=== PATIENT | female | born 1965 | race Caucasian/White ===

== ENCOUNTER 2017-01-06 13:27 | Day surgery (SDC) | payer OTHER, SELFPAY | END 2017-01-06 14:38 | disposition home or self-care (01) | PROVIDERS: Family Provider Emergency Medicine; Visit Provider Nurse Anesthetist, Certified Registered | DX: M50.10 Cervical disc disorder with radiculopathy, unspecified cervical region (principal); M96.1 Postlaminectomy syndrome, not elsewhere classified | CPT/HCPCS: 62320; 62321; 62323; J1040; Q9966 ==

== ENCOUNTER → 2017-12-21 09:57 | Outpatient (POV) | payer OTHER, SELFPAY ==
[2017-12-21 10:08] VITALS: BP 128/82; PULSE 101; RESP 16; TEMP 36.7; O2SAT 95; BMI 23.5
--- NOTE | 2017-12-21 10:35 | HMH.PAINSOAP ---
[facility] Pain Management SOAP Note Subjective:: This patient is a pleasant 52-year-old white female who we are treating for neck pain with cervical radiculopathy symptoms. She is degenerative disc disease of the cervical spine. She has had previous cervical epidural steroid injections which have helped tremendously. Her last injection was approximately 3 months ago. Her pain is starting to return especially in her neck radiating to both shoulders. We will seek approval for repeat cervical epidural steroid injection under fluoroscopy. She is also taking [place] 7.5 mg 3 times a day. She is doing very well with her pain medication. Kaspar and urine drug screen are all appropriate. Kaspar #[id number]. Pain medication relieves her pain by 50-70%. She has no side effects with her pain medication. Objective:: Alert and oriented ?3 in no acute distress. Decreased range of motion of the cervical spine. Tenderness over the cervical spine. Motor strength of the upper extremities is 5/5. There is no gross sensory deficit. Assessment:: Degenerative disc disease of the cervical spine with cervical radiculopathy symptoms. Plan:: We will seek approval and plan on cervical epidural steroid injection under fluoroscopy at C6-C7. We will also refill her [place] 7.5 mg 1 tablet 3 times a day. We will give HER-2 months worth of prescriptions.
--- NOTE | 2017-12-21 10:40 | P.CONS_ITS ---
[facility] Pain Management SOAP Note Subjective:: This patient is a pleasant 52-year-old white female who we are treating for neck pain with cervical radiculopathy symptoms. She is degenerative disc disease of the cervical spine. She has had previous cervical epidural steroid injections which have helped tremendously. Her last injection was approximately 3 months ago. Her pain is starting to return especially in her neck radiating to both shoulders. We will seek approval for repeat cervical epidural steroid injection under fluoroscopy. She is also taking [place] 7.5 mg 3 times a day. She is doing very well with her pain medication. Kaspar and urine drug screen are all appropriate. Kaspar #[id number]. Pain medication relieves her pain by 50-70%. She has no side effects with her pain medication. Objective:: Alert and oriented ?3 in no acute distress. Decreased range of motion of the cervical spine. Tenderness over the cervical spine. Motor strength of the upper extremities is 5/5. There is no gross sensory deficit. Assessment:: Degenerative disc disease of the cervical spine with cervical radiculopathy symptoms. Plan:: We will seek approval and plan on cervical epidural steroid injection under fluoroscopy at C6-C7. We will also refill her Jennings 7.5 mg 1 tablet 3 times a day. We will give HER-2 months worth of prescriptions.
== END ==
PROVIDERS: Family Provider Family Medicine Geriatric Medicine; PCP Family Medicine Geriatric Medicine; Visit Provider Anesthesiology
DX: M54.12 Radiculopathy, cervical region (principal)
CPT/HCPCS: 99212

== ENCOUNTER → 2017-12-31 14:09 | Outpatient (REF) | payer OTHER, SELFPAY ==
[2017-12-31 17:43] LABS: Basophils # 0.1 K/mm3 (0-0.2); Basophils % 0.8 % (0.1-2.0); Eosinophils # 0.3 K/mm3 (0.0-0.4); Eosinophils % 3.9 % (0.1-12.0); Hematocrit 40.7 % (37.0-47.0); Hemoglobin 13.3 g/dL (12.2-16.2); Lymphocytes # 3.7 K/mm3 (0.7-4.5); Lymphocytes % 56.3 K/mm3 (10-50); Mean Corpuscular HGB Conc 32.8 g/dL (31.8-35.4); Mean Corpuscular Hemoglobin 33.5 pg (27.0-31.2); Mean Corpuscular Volume 102.2 fl (81-99); Mean Platelet Volume 9.3 fl (7.4-10.4); Monocytes # 0.6 K/mm3 (0.1-1.0); Monocytes % 8.9 % (1.7-9.3); Neutrophils % 30.1 % (37.0-80.0); Platelet Count 202 K/mm3 (142-424); Red Blood Count 3.98 M/mm3 (4.20-5.40); Red Cell Distribution Width 12.2 % (11.5-17.5); White Blood Count 6.6 K/mm3 (4.8-10.8)
[2017-12-31 17:45] LABS: MANUAL DIFFERENTIAL MANUAL DIFFERENTIAL (MANUAL DIFF)
[2017-12-31 18:11] LABS: Alanine Aminotransferase 124 U/L (12-78); Albumin Level 3.7 gm/dL (3.4-5.0); Alkaline Phosphatase 74 U/L (46-116); Anion Gap 14.3 mEq/L (5-15); Aspartate Amino Transferase 136 U/L (15-37); Bilirubin,Total 0.4 mg/dL (0.2-1.0); Blood Urea Nitrogen 5 mg/dL (7-18); Calcium 9.1 mg/dL (8.5-10.1); Carbon Dioxide 27 mmol/L (21.0-32.0); Chloride 108 mmol/L (98-107); Cholesterol 175 mg/dL (140-200); Creatinine,Serum 0.61 mg/dL (0.55-1.02); Estimated Glomerular Filt Rate 104 ml/min (>60); GFR (African American) 126 ML/MIN (>60); Globulin 3.7 gm/dl (1.3-3.2); Glucose 76 mg/dL (74-106); HDL Cholesterol 58 mg/dL (29-89); LDL Cholesterol 80 mg/dL (0-130); Potassium 4.3 mmoL/L (3.5-5.1); Sodium 145 mmol/L (136-145); T4 (Thyroxine) 9.2 ug/dl (4.7-13.3); Total Protein,Serum 7.4 gm/dL (6.4-8.2); Triglycerides 183 mg/dL (30-200); VLDL Cholesterol 37 mg/dL (0-40)
[2017-12-31 19:10] LABS: Eosinophils % 3 % (0-3); Lymphocytes % 55 % (10-50); Macrocytosis 1+; Monocytes % 18 % (2-9); Neutrophils % 24 % (42-76); Platelet Estimate Normal; Total Cells Counted 100
[2018-01-02 19:09] LABS: Vitamin D 25 Hydroxy 49.1 ng/mL (30.0-100.0)
== END ==
LOC: LAB 14:09
PROVIDERS: Visit Provider Physician Assistant
DX: R53.83 Other fatigue (principal)
CPT/HCPCS: 80053; 80061; 82652; 84436; 84443; 85007; 85025

== ENCOUNTER → 2018-01-05 11:20 | Outpatient (CLI) | payer OTHER, SELFPAY ==
[2018-01-08 12:03] LABS: Vitamin B12 772 pg/mL (232-1245)
== END ==
PROVIDERS: PCP Physician Assistant; Visit Provider Physician Assistant
DX: R53.83 Other fatigue (principal)
CPT/HCPCS: 36415; 82607; 82746

== ENCOUNTER 2018-01-29 11:11 | Day surgery (SDC) | payer OTHER, SELFPAY ==
[2018-01-29 12:05] VITALS: BP 137/97; PULSE 124; TEMP 36.7; O2SAT 99; BMI 23.5
--- NOTE | 2018-01-29 12:53 | HMH.PMPROC ---
- Procedure Date: 01/29/18 Time: 12:53 Anesthesiologist:: Brown Curtis MD Complications:: None Pre-procedure Diagnosis:: Degenerative disc disease of cervical spine with cervical radiculopathy symptoms Post-procedure Diagnosis:: Same Indications for Procedure:: He this patient is a pleasant 52-year-old white female who we are treating for neck pain with cervical radiculopathy symptoms. She has had a previous cervical epidural steroid injection which is helped tremendously. This was approximately 3-4 months ago. Her pain is starting to return. We will do a repeat cervical epidural steroid injection today at C6-C7. Procedure Details:: Cervical epidural steroid injection under fluoroscopy Informed consent was obtained and the risks and benefits of the procedure was explained to the patient. The patient was taken to the procedure room placed prone on the procedure table. The neck was prepped using ChloraPrep. The skin and subcutaneous tissues were anesthetized using lidocaine. I placed a 18-gauge epidural needle into the C6-C7 interspace and advanced using [id number] to air and fluoroscopic guidance. After confirmation of needle placement in the epidural space with dye, I injected 3 mL's lidocaine 1.5% and Depo-Medrol 80 mg. The patient tolerated the procedure well with no complications. Plan and Disposition:: We will follow-up with her in 2 weeks. We will reevaluate her symptoms at that time.
--- NOTE | 2018-01-29 12:57 | P.PCN_ITS ---
- Procedure Date: 01/29/18 Time: 12:53 Anesthesiologist:: Brown Curtis MD Complications:: None Pre-procedure Diagnosis:: Degenerative disc disease of cervical spine with cervical radiculopathy symptoms Post-procedure Diagnosis:: Same Indications for Procedure:: He this patient is a pleasant 52-year-old white female who we are treating for neck pain with cervical radiculopathy symptoms. She has had a previous cervical epidural steroid injection which is helped tremendously. This was approximately 3-4 months ago. Her pain is starting to return. We will do a repeat cervical epidural steroid injection today at C6-C7. Procedure Details:: Cervical epidural steroid injection under fluoroscopy Informed consent was obtained and the risks and benefits of the procedure was explained to the patient. The patient was taken to the procedure room placed prone on the procedure table. The neck was prepped using ChloraPrep. The skin and subcutaneous tissues were anesthetized using lidocaine. I placed a 18- gauge epidural needle into the C6-C7 interspace and advanced using loss-of- resistance to air and fluoroscopic guidance. After confirmation of needle placement in the epidural space with dye, I injected 3 mL's lidocaine 1.5% and Depo-Medrol 80 mg. The patient tolerated the procedure well with no complications. Plan and Disposition:: We will follow-up with her in 2 weeks. We will reevaluate her symptoms at that time.
[2018-01-29 13:01] VITALS: BP 135/95; PULSE 108; RESP 18
[2018-01-29 13:03] VITALS: BP 123/96; PULSE 110; RESP 20
[2018-01-29 14:05] VITALS: BP 141/96; PULSE 81; RESP 18; TEMP 36.7; O2SAT 100
--- NOTE | 2018-02-05 09:22 | PC.PHONENOTE ---
called in Rx for Gabapentin 300mg TID with 2 refills and Flexeril 10mg TID with 2 refills to [facility] pharmacy
== END 2018-01-29 14:05 | disposition home or self-care (01) ==
LOC: SC.PAINP 11:12
PROVIDERS: Family Provider Family Medicine Geriatric Medicine; PCP Physician Assistant; Visit Provider Anesthesiology
DX: M50.10 Cervical disc disorder with radiculopathy, unspecified cervical region (principal)
CPT/HCPCS: 62321; J1040; Q9966

== ENCOUNTER → 2018-02-15 12:47 | Outpatient (POV) | payer OTHER, SELFPAY ==
[2018-02-15 14:07] VITALS: BP 180/103; PULSE 78; RESP 18; TEMP 36.4; O2SAT 99; BMI 23.5
[2018-02-15 15:58] LABS: Amphetamine/Metha Screen,Urine Negative ng/mL (<1000); Barbiturates Screen,Urine Negative ng/mL (<200); Benzodiazepines Screen,Urine Negative ng/mL (200); Cannabinoid Screen,Urine Negative ng/mL (<50); Cocaine Screen,Urine Negative ng/g (<300); Methadone Screen,Urine Negative ng/mL (<300); Opiate Screen,Urine Positive ng/mL (<300); Phencyclidine Screen,Urine Negative ng/mL (<25)
--- NOTE | 2018-02-15 16:42 | HMH.PAINSOAP ---
[facility] Pain Management SOAP Note Subjective:: Patient is a pleasant 52-year-old white female who presents today for follow-up after of cervical epidural steroid injection. Patient has had 80-90% relief of her symptoms. Patient is doing quite well. Patient is currently being medically managed for other pain with Sandy 7.5 mg 1 p.o. 3 times daily. And gabapentin 300 mg 1 p.o. 3 times daily. Patient recently received a prescription from Dr. Ratliff. Just with the patient that she needs to notify us if physician writes or any controlled substances. Patient's urine drug screen did test positive for opiates today. Patient had difficulty producing a urine sample. Patient is here for medication refills. Patient's JOHN #[id number] reviewed at this time. Patient rates her pain a 6 out of 10 today. She is having shoulder surgery. Patient states her pain is achy and dull. ROS General: no recent weight change, no fever, no sleep disturbances Respiratory: no cough, no shortness of air, no recurring pulmonary infections Cardiovascular/Peripheral Vascular: No chest pain, No palpitations, no edema, no shortness of breath. Gastrointestinal: no incontinence, normal bowel movements reported Genitourinary: no incontinence Musculoskeletal: Neck pain, shoulder pain Psychiatric: normal mood/ affect, [denies depression], [denies anxiety] Neurological: [denies weakness in extremities], [denies balance issues] Objective:: Physical Exam General: Alert and oriented x3, no acute distress, pleasant and cooperative, [on room air] Lungs: Resps E/U, Symmetrical chest expansion, Eyes: PERRL Musculoskeletal: Flexion and extension of cervical spine somewhat guarded secondary to pain, deep tendon reflexes normal, strength in upper and lower extremities [5/5], normal gait noted Neurological: speech clear, sandblaster stone equal, no gross sensory deficits Assessment:: Degenerative disc disease of the cervical spine, cervical radiculopathy, shoulder pain Plan:: She is not needing prescription refills at this time. Patient will call for her next prescription. Dr. Curtis will review her chart at that time. Patient's John and urine drug screen reviewed at this time. We will follow-up with this patient in 2-3 months. This note was dictated using voice recognition software may contain errors or omissions
--- NOTE | 2018-02-15 16:47 | P.CONS_ITS ---
[facility] Pain Management SOAP Note Subjective:: Patient is a pleasant 52-year-old white female who presents today for follow-up after of cervical epidural steroid injection. Patient has had 80-90% relief of her symptoms. Patient is doing quite well. Patient is currently being medically managed for other pain with [place] 7.5 mg 1 p.o. 3 times daily. And gabapentin 300 mg 1 p.o. 3 times daily. Patient recently received a prescription from Dr. Ratliff. Just with the patient that she needs to notify us if physician writes or any controlled substances. Patient's urine drug screen did test positive for opiates today. Patient had difficulty producing a urine sample. Patient is here for medication refills. Patient's JOHN # [id number] reviewed at this time. Patient rates her pain a 6 out of 10 today. She is having shoulder surgery. Patient states her pain is achy and dull. ROS General: no recent weight change, no fever, no sleep disturbances Respiratory: no cough, no shortness of air, no recurring pulmonary infections Cardiovascular/Peripheral Vascular: No chest pain, No palpitations, no edema, no shortness of breath. Gastrointestinal: no incontinence, normal bowel movements reported Genitourinary: no incontinence Musculoskeletal: Neck pain, shoulder pain Psychiatric: normal mood/ affect, [denies depression], [denies anxiety] Neurological: [denies weakness in extremities], [denies balance issues] Objective:: Physical Exam General: Alert and oriented x3, no acute distress, pleasant and cooperative, [ on room air] Lungs: Resps E/U, Symmetrical chest expansion, Eyes: PERRL Musculoskeletal: Flexion and extension of cervical spine somewhat guarded secondary to pain, deep tendon reflexes normal, strength in upper and lower extremities [5/5], normal gait noted Neurological: speech clear, store stock associate equal, no gross sensory deficits Assessment:: Degenerative disc disease of the cervical spine, cervical radiculopathy, shoulder pain Plan:: She is not needing prescription refills at this time. Patient will call for her next prescription. Dr. Curtis will review her chart at that time. Patient's John and urine drug screen reviewed at this time. We will follow-up with this patient in 2-3 months. This note was dictated using voice recognition software may contain errors or omissions
[2018-02-22 16:16] LABS: Codeine Negative (Cutoff=100); Hydrocodone Positive (.); Hydromorphone Positive (.); Morphine Negative (Cutoff=100)
[2018-02-23 15:38] LABS: Opiates Positive (.)
== END ==
PROVIDERS: Family Provider Family Medicine Geriatric Medicine; PCP Physician Assistant; Visit Provider Clinical Nurse Specialist Family Health
DX: M54.12 Radiculopathy, cervical region (principal)
CPT/HCPCS: 99212; 80305; 80361; 80365; G0480

== ENCOUNTER → 2018-03-08 12:04 | Outpatient (CLI) | payer OTHER, SELFPAY ==
--- NOTE | 2018-03-08 12:05 | XR_ITS ---
XR hip RT 2-3V w/pelvis HISTORY: ITS.REASON: right hip pain ORDERING PHYSICIAN: LUISITO Griffin PATIENT AGE: 52 years FINDINGS: No fracture or dislocation is evident. There are minimal osteoarthritic changes of the right hip with slight decrease in joint space medially. No lytic or blastic change. IMPRESSION: Minimal osteoarthritis of the right hip otherwise negative
== END ==
PROVIDERS: PCP Physician Assistant; Visit Provider Physician Assistant
DX: M25.551 Pain in right hip (principal)
CPT/HCPCS: 73502

== ENCOUNTER → 2018-06-21 09:16 | Outpatient (POV) | payer OTHER, SELFPAY ==
[2018-06-21 09:28] VITALS: BP 145/90; PULSE 89; RESP 18; O2SAT 98; BMI 22.7
--- NOTE | 2018-06-21 09:55 | HMH.PAINSOAP ---
[facility] Pain Management SOAP Note Subjective:: Is a pleasant 52-year-old white female who presents today for follow-up. Patient was getting injections from us along with medication however she failed to put out recently. We are no longer writing her [place] 7.5 mg 1 p.o. 3 times daily. Patient went to pain management in [place] however she stated she had difficulty understanding the physician. Patient returns today wanting to pursue a cervical epidural steroid injection. Patient has had these in the past but states it helps up to 80% for 3-4 months. Patient rates her pain today at 8 out of 10 mostly at her Lyrica going down her arms. She states that her arms get numb at times along with all of her fingers on both hands. ROS General: no recent weight change, no fever, no sleep disturbances Respiratory: no cough, no shortness of air, no recurring pulmonary infections Cardiovascular/Peripheral Vascular: No chest pain, No palpitations, no edema, no shortness of breath. Gastrointestinal: no incontinence, normal bowel movements reported Genitourinary: no incontinence Musculoskeletal: Neck pain, arm pain Psychiatric: normal mood/ affect Neurological: [denies weakness in extremities], [denies balance issues] Objective:: Physical Exam General: Alert and oriented x3, no acute distress, pleasant and cooperative, [on room air] Lungs: Resps E/U, Symmetrical chest expansion, Eyes: PERRL Musculoskeletal: Flexion and extension of lumbar and cervical spine somewhat guarded secondary to pain, deep tendon reflexes normal, strength in upper and lower extremities [5/5], slightly antalgic gait noted Neurological: speech clear, plant and maintenance technician equal, no gross sensory deficits Assessment:: Degenerative disc disease of the cervical spine, cervical radiculopathy, degenerative disc disease of the lumbar spine with lumbar radiculopathy Plan:: Did discuss neuro stimulation with the patient I do believe that this may be of benefit for her. Patient is going to consider this. We will schedule her for a C6-C7 cervical epidural steroid injection given that she has had such good relief with this in the past. Patient is not on any anticoagulation therapy. I will follow-up with the patient after her injection. This note was dictated using voice recognition software and may contain errors or omissions
== END ==
PROVIDERS: Family Provider Family Medicine Geriatric Medicine; PCP Physician Assistant; Visit Provider Clinical Nurse Specialist Family Health
DX: M50.10 Cervical disc disorder with radiculopathy, unspecified cervical region (principal); M51.16 Intervertebral disc disorders with radiculopathy, lumbar region
CPT/HCPCS: 99212

== ENCOUNTER → 2019-01-19 08:45 | Outpatient (CLI) | payer OTHER, SELFPAY ==
--- NOTE | 2019-01-19 08:48 | XR_ITS ---
XR knee RT 4V HISTORY: ITS.REASON: Bilateral knee pain ORDERING PHYSICIAN: LUISITO Griffin PATIENT AGE: 53 years COMPARISON: None FINDINGS: No fracture or dislocation. No lytic or blastic change. Normal mineralization. Minimal osteophyte formation is noted along the lateral patella on the sunrise view. There is chondrocalcinosis of the medial lateral meniscus. There is slight decrease in the joint space medially. IMPRESSION: 1. Minimal osteoarthritic change. 2. Chondrocalcinosis
--- NOTE | 2019-01-19 08:48 | XR_ITS ---
XR knee LT 4V HISTORY: Left knee pain ITS.REASON: Bilateral knee pain ORDERING PHYSICIAN: LUISITO Griffin PATIENT AGE: 53 years COMPARISON: None FINDINGS: No fracture or dislocation. No lytic or blastic change. Normal mineralization. The joint spaces are well-preserved. There is minimal osteophyte formation along the lateral aspect of the patella. There is chondrocalcinosis of medial lateral menisci. IMPRESSION: 1. Chondrocalcinosis. 2. Minimal osteoarthritic change of the patellofemoral joint
== END ==
PROVIDERS: PCP Physician Assistant; Visit Provider Physician Assistant
DX: M25.562 Pain in left knee (principal)
CPT/HCPCS: 73564

== ENCOUNTER → 2019-05-03 10:44 | Outpatient (POV) | payer OTHER, SELFPAY ==
--- NOTE | 2019-05-03 11:14 | HMH.PAINSOAP ---
[facility] Pain Management SOAP Note Subjective:: Patient is a pleasant 53-year-old white female who presents today patient rates her pain a 9 out of 10 mostly in her neck and back. She was on [place] for months however she failed a pill count. She then going to pain management in [place]. Patient has done injections in the past with no real relief. Patient is interested in spinal cord stimulation. She has pain in her neck and low back with numbness and tingling in all extremities. She is tried and failed multiple medications ROS General: no recent weight change, no fever, no sleep disturbances Respiratory: no cough, no shortness of air, no recurring pulmonary infections Cardiovascular/Peripheral Vascular: No chest pain, No palpitations, no edema, no shortness of breath. Gastrointestinal: no incontinence, normal bowel movements reported Genitourinary: no incontinence Musculoskeletal: Back pain, leg pain, neck pain, arm pain Psychiatric: normal mood/ affect Neurological: [denies weakness in extremities], [denies balance issues] Objective:: Physical Exam General: Alert and oriented x3, no acute distress, pleasant and cooperative, [on room air] Lungs: Resps E/U, Symmetrical chest expansion, Eyes: PERRL Musculoskeletal: Flexion and extension of cervical and lumbar spine somewhat guarded secondary to pain, deep tendon reflexes normal, strength in upper and lower extremities [5/5], antalgic gait noted Neurological: speech clear, manager of software equal, no gross sensory deficits Assessment:: Degenerative disc disease cervical and lumbar spine with cervical radiculopathy and lumbar radiculopathy CRPS type II Plan:: We will send the patient for psychological evaluation to determine if she is a good candidate for neuro stimulation. Patient will be followed up with after psychological evaluation. She is been instructed to call the office if she has any issues prior to her next appointment. Dr. Curtis has reviewed this note and agrees with this plan of care. This note was dictated using voice recognition software and may contain errors or omissions
--- NOTE | 2019-05-03 11:25 | P.CONS_ITS ---
[facility] Pain Management SOAP Note Subjective:: Patient is a pleasant 53-year-old white female who presents today patient rates her pain a 9 out of 10 mostly in her neck and back. She was on [place] for months however she failed a pill count. She then going to pain management in [place]. Patient has done injections in the past with no real relief. Patient is interested in spinal cord stimulation. She has pain in her neck and low back with numbness and tingling in all extremities. She is tried and failed multiple medications ROS General: no recent weight change, no fever, no sleep disturbances Respiratory: no cough, no shortness of air, no recurring pulmonary infections Cardiovascular/Peripheral Vascular: No chest pain, No palpitations, no edema, no shortness of breath. Gastrointestinal: no incontinence, normal bowel movements reported Genitourinary: no incontinence Musculoskeletal: Back pain, leg pain, neck pain, arm pain Psychiatric: normal mood/ affect Neurological: [denies weakness in extremities], [denies balance issues] Objective:: Physical Exam General: Alert and oriented x3, no acute distress, pleasant and cooperative, [on room air] Lungs: Resps E/U, Symmetrical chest expansion, Eyes: PERRL Musculoskeletal: Flexion and extension of cervical and lumbar spine somewhat guarded secondary to pain, deep tendon reflexes normal, strength in upper and lower extremities [5/5], antalgic gait noted Neurological: speech clear, prison librarian equal, no gross sensory deficits Assessment:: Degenerative disc disease cervical and lumbar spine with cervical radiculopathy and lumbar radiculopathy CRPS type II Plan:: We will send the patient for psychological evaluation to determine if she is a good candidate for neuro stimulation. Patient will be followed up with after psychological evaluation. She is been instructed to call the office if she has any issues prior to her next appointment. Dr. Curtis has reviewed this note and agrees with this plan of care. This note was dictated using voice recognition software and may contain errors or omissions
[2019-05-03 11:30] VITALS: BP 150/87; PULSE 90; RESP 18; O2SAT 98; BMI 21.9
== END ==
PROVIDERS: PCP Physician Assistant; Visit Provider Clinical Nurse Specialist Family Health
DX: M50.10 Cervical disc disorder with radiculopathy, unspecified cervical region (principal); M54.16 Radiculopathy, lumbar region
CPT/HCPCS: 99212

== ENCOUNTER → 2019-08-09 10:01 | Outpatient (POV) | payer OTHER, SELFPAY ==
[2019-08-09 10:15] VITALS: BP 100/71; PULSE 87; RESP 18; O2SAT 97; BMI 22.7
--- NOTE | 2019-08-09 12:21 | HMH.PMPROC ---
- Procedure Date: 08/09/19 Time: 12:21 Anesthesiologist:: Dixie Kaur APRN Complications:: None Pre-procedure Diagnosis:: Degenerative disc disease cervical spinal cervical radiculopathy symptoms, degenerative disc disease lumbar spine with lumbar radiculopathy symptoms Post-procedure Diagnosis:: Same Indications for Procedure:: Patient is a 54-year-old white female who we are following up with today for lead removal from a stimulator trial. Patient states she got no relief from it. She rates her pain a 9 out of 10. Will get some updated imaging on her however at this point we are limited to what we can offer her. She is failed a pill count in the past and is not an intrathecal pain pump candidate. Patient is tried and failed injection therapy as well. Physical Exam General: Alert and oriented x3, no acute distress, pleasant and cooperative, [on room air] Lungs: Resps E/U, Symmetrical chest expansion, Eyes: PERRL Musculoskeletal: Flexion and extension of lumbar and cervical spine somewhat guarded secondary to pain, deep tendon reflexes normal, strength in upper and lower extremities [5/5], [abnormal gait noted] Neurological: speech clear, recycling crew supervisor equal, no gross sensory deficits Procedure Details:: After informed consent was obtained the risk and benefits of the procedure were explained to the patient. Patient's vital signs were monitored with noninvasive blood pressure cuff and pulse oximeter. Patient's tape was removed on her back. The area in which her epidural leads entered was examined to ensure no redness or draining. Patient leads were then removed in sterile fashion. Patient then had Band-Aids placed over the puncture sites. Patient tolerated the procedure well. Plan and Disposition:: Patient did not get any relief from her stimulator. We will get some updated imaging she may need to see a surgeon. Patient has failed a pill count she is no intrathecal pain pump candidate. Dr. Curtis has reviewed this note and agrees with this plan of care. This note was dictated using voice recognition software and may contain errors or omissions
== END ==
PROVIDERS: PCP Physician Assistant; Visit Provider Clinical Nurse Specialist Family Health
DX: M50.10 Cervical disc disorder with radiculopathy, unspecified cervical region (principal); M51.16 Intervertebral disc disorders with radiculopathy, lumbar region
CPT/HCPCS: 99212

== ENCOUNTER → 2019-09-05 13:10 | Outpatient (POV) | payer OTHER, SELFPAY ==
[2019-09-05 13:20] VITALS: BP 141/87; PULSE 80; RESP 18; O2SAT 98; BMI 22.7
--- NOTE | 2019-09-06 11:40 | P.CONS_ITS ---
[facility] Pain Management SOAP Note Subjective:: Patient is a pleasant 54-year-old white female who we are following up with today after denial for an MRI. Patient needs an MRI to be seen by a neurosurgeon. I do believe that would be beneficial for her. Patient failed a pill count in the past and at this time is not an intrathecal pain pump pool date. She is tried and failed a neurostimulator. She rates her pain today a 7 out of 10. Patient was denied her MRI due to her not having physical therapy in the last 6 months. We will order this for her. ROS General: no recent weight change, no fever, no sleep disturbances Respiratory: no cough, no shortness of air, no recurring pulmonary infections Cardiovascular/Peripheral Vascular: No chest pain, No palpitations, no edema, no shortness of breath. Gastrointestinal: no new onset incontinence, normal bowel movements reported Genitourinary: no new onset incontinence Musculoskeletal: Back pain leg pain Psychiatric: normal mood/ affect Neurological: [denies new onset weakness in extremities], [denies new onset balance issues] Objective:: Physical Exam General: Alert and oriented x3, no acute distress, pleasant and cooperative, [on room air] Lungs: Resps E/U, Symmetrical chest expansion, Eyes: PERRL Musculoskeletal: Flexion and extension of lumbar spine somewhat guarded secondary to pain, deep tendon reflexes normal, strength in upper and lower extremities [5/5], slightly antalgic gait noted Neurological: speech clear, emt basic equal, no gross sensory deficits Assessment:: Degenerative disc disease cervical and lumbar spine with radiculopathy Plan:: We will order physical therapy for the patient. When she is completed this we will order new MRI for surgical consult. Dr. Curtis has reviewed this note and agrees with this plan of care. This note was dictated using voice recognition software and may contain errors or omissions [facility] History I have reviewed the patient's past medical history: Yes Medical History: Reports:: Hepatitis (Hep C postive on medications) Denies:: Cancer, Diabetes Mellitus Type 1, Diabetes Mellitus Type 2, Internal Pacemaker, MRSA, Seizures *Have you ever received a pneumonia vaccine?: Yes *Have you received a flu vaccine this season?: Yes Other Medical History: Reports: Arthritis. Denies: Blood Transfusion Reaction Laterality Cases: Right: Arthroscopy Shoulder Other Surgeries: Yes: Tubal Ligation. No: Pacemaker Amputation: No Fractures: No - *Social History Smoking Status: Never smoker Tobacco Type: cigarettes # Packs/Day (cigarettes): 1 Alcohol Intake: never Alcohol Intake Frequency:: 3 or more drinks per day Substance Use Type: denies use *Occupational Status:: other Housing: house *Travel in the last 8 weeks: None Family Hx:: Cancer, Diabetes, Hypertension
== END ==
PROVIDERS: PCP Physician Assistant; Visit Provider Clinical Nurse Specialist Family Health
DX: M50.30 Other cervical disc degeneration, unspecified cervical region (principal); M51.16 Intervertebral disc disorders with radiculopathy, lumbar region
CPT/HCPCS: 99212

== ENCOUNTER → 2019-09-27 09:46 | Outpatient (POV) | payer OTHER, SELFPAY ==
[2019-09-27 10:56] VITALS: BP 131/82; PULSE 80; RESP 18; O2SAT 98; BMI 22.7
--- NOTE | 2019-10-04 09:02 | HMH.PAINSOAP ---
[facility] Pain Management SOAP Note Subjective:: Patient is a pleasant 54-year-old white female who is having extreme low back pain. Patient was seen in the ER where she was scheduled for CT scan. We have been try to get a cervical neck MRI for the patient she is been completing physical therapy. Patient and I discussed the fact that I do believe she needs a new MRI on her neck and her low back. We will order this today. Patient is not a narcotic candidate due to her being released from the clinic for narcotics due to failed pill count. However patient I did briefly discuss a bupivacaine pain pump. Patient failed a neurostimulator trial. She rates her pain today at 7 out of 10. She is not on any steroids at this time. ROS General: no recent weight change, no fever, no sleep disturbances Respiratory: no cough, no shortness of air, no recurring pulmonary infections Cardiovascular/Peripheral Vascular: No chest pain, No palpitations, no edema, no shortness of breath. Gastrointestinal: no new onset incontinence, normal bowel movements reported Genitourinary: no new onset incontinence Musculoskeletal: Neck pain, back pain, leg pain Psychiatric: normal mood/ affect Neurological: [denies new onset weakness in extremities], [denies new onset balance issues] Objective:: Physical Exam General: Alert and oriented x3, no acute distress, pleasant and cooperative, [on room air] Lungs: Resps E/U, Symmetrical chest expansion, Eyes: PERRL Musculoskeletal: Flexion and extension of cervical and lumbar spine somewhat guarded secondary to pain, deep tendon reflexes normal, strength in upper and lower extremities [5/5], [abnormal gait noted] Neurological: speech clear, paraffiner equal, no gross sensory deficits Assessment:: 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 twice daily and also order MRIs of her neck and her low back. She is continuing physical therapy. We will follow-up with her after this reassess her symptoms at that time she is been instructed to call the office if she has any issues prior to her next appointment. Dr. Curtis has reviewed this note and agrees with this plan of care. This note was dictated using voice recognition software and may contain errors or omissions [facility] History I have reviewed the patient's past medical history: Yes Medical History: Reports:: Hepatitis (Hep C postive on medications) Denies:: Cancer, Diabetes Mellitus Type 1, Diabetes Mellitus Type 2, Internal Pacemaker, MRSA, Seizures *Have you ever received a pneumonia vaccine?: Yes *Have you received a flu vaccine this season?: Yes Other Medical History: Reports: Arthritis. Denies: Blood Transfusion Reaction Laterality Cases: Right: Arthroscopy Shoulder Other Surgeries: Yes: Tubal Ligation. No: Pacemaker Amputation: No Fractures: No - *Social History Smoking Status: Never smoker Tobacco Type: cigarettes # Packs/Day (cigarettes): 1 Alcohol Intake: never Alcohol Intake Frequency:: 3 or more drinks per day Substance Use Type: denies use *Occupational Status:: other Housing: house *Travel in the last 8 weeks: None Family Hx:: Cancer, Diabetes, Hypertension
== END ==
PROVIDERS: PCP Physician Assistant; Visit Provider Clinical Nurse Specialist Family Health
DX: M50.30 Other cervical disc degeneration, unspecified cervical region (principal); M51.16 Intervertebral disc disorders with radiculopathy, lumbar region
CPT/HCPCS: 99212

== ENCOUNTER → 2020-01-05 17:04 | Outpatient (CLI) | payer MEDICAID, SELFPAY ==
[2020-01-05 18:31] LABS: Basophils % 0.7 % (0.1-2.0); Eosinophils # 0.1 K/mm3 (0.0-0.4); Eosinophils % 1.8 % (0.1-12.0); Hematocrit 38.6 % (37.0-47.0); Hemoglobin 13.1 g/dL (12.2-16.2); Lymphocytes # 2.3 K/mm3 (0.7-4.5); Lymphocytes % 39.9 % (10-50); Mean Corpuscular HGB Conc 33.8 g/dL (31.8-35.4); Mean Corpuscular Hemoglobin 32.8 pg (27.0-31.2); Mean Platelet Volume 10.3 fl (7.4-10.4); Monocytes # 0.4 K/mm3 (0.1-1.0); Monocytes % 7.4 % (1.7-9.3); Neutrophils # 2.9 K/mm3 (1.8-7.8); Neutrophils % 50.1 % (37.0-80.0); Platelet Count 183 K/mm3 (142-424); Red Blood Count 3.98 M/mm3 (4.20-5.40); Red Cell Distribution Width 12.3 % (11.5-17.5); White Blood Count 5.9 K/mm3 (4.8-10.8)
[2020-01-05 19:14] LABS: Alanine Aminotransferase 28 U/L (9-52); Albumin Level 4.3 g/dL (3.4-5.0); Albumin/Globulin Ratio 1.4 (1.1-1.8); Alkaline Phosphatase 68 U/L (46-116); Anion Gap 15.3 mEq/L (5-15); Aspartate Amino Transferase 21 U/L (15-37); Bilirubin,Total 0.4 mg/dL (0.2-1.0); Blood Urea Nitrogen 12 mg/dL (7-18); Calcium 9.2 mg/dL (8.5-10.1); Carbon Dioxide 24 mmol/L (21.0-32.0); Chloride 110 mmol/L (98-107); Chol/HDL Ratio 3.3 (1-3.5); Cholesterol 175 mg/dL (140-200); Creatinine,Serum 0.84 mg/dL (0.55-1.02); Estimated Glomerular Filt Rate 71 ml/min (>60); GFR (African American) 86 ML/MIN (>60); Globulin 3.1 gm/dl (1.3-3.2); Glucose 94 mg/dL (74-106); HDL Cholesterol 53 mg/dL (29-89); LDL Cholesterol 93 mg/dL (0-130); Potassium 4.3 mmoL/L (3.5-5.1); Sodium 145 mmol/L (137-145); T4 (Thyroxine) 5.8 ug/dl (4.7-13.3); Thyroid Stimulating Hormone 1.23 uIU/ml (0.358-3.740); Total Protein,Serum 7.4 g/dL (6.4-8.2); Triglycerides 147 mg/dL (30-200); VLDL Cholesterol 29 mg/dL (0-40)
[2020-01-07 19:10] LABS: Vitamin D 25 Hydroxy 40.4 ng/mL (30.0-100.0)
== END ==
PROVIDERS: Visit Provider Physician Assistant
DX: R63.5 Abnormal weight gain (principal); Z01.89 Encounter for other specified special examinations
CPT/HCPCS: 80053; 80061; 82652; 84436; 84443; 85025

== ENCOUNTER → 2022-03-10 11:59 | Outpatient (CLI) | payer MEDICAID, SELFPAY ==
--- NOTE | 2022-03-10 12:04 | XR_ITS ---
FINAL REPORT CLINICAL HISTORY: LOW BACK PAIN THAT SHOOTS DOWN INTO BOTH LEGS FINDINGS: 5 views of the lumbar spine were obtained. There is no evidence of fracture or dislocation. There is no malalignment. There is mild rightward curvature. There are fazj-ck-bdufemze degenerative changes. There are vertebral body osteophytes. There is facet arthropathy in the lower lumbar spine. There are mild vascular calcifications. IMPRESSION: Bohw-gi-oqauinfb degenerative changes. Reviewed, Interpreted and Dictated by Tom Maynard III, MD Transcribed by Fabian Doshi Authenticated by oTm Maynard III, MD on 03/10/2022 01:33:12 PM [facility]
--- NOTE | 2022-03-10 12:04 | XR_ITS ---
FINAL REPORT CLINICAL HISTORY: LOW BACK PAIN THAT SHOOTS DOWN INTO BOTH LEGS FINDINGS: SACRUM COCCYX 3 views demonstrate no acute fracture or dislocation. The sacral arches are intact. There are mild SI joint degenerative changes. No soft tissue abnormality is seen. IMPRESSION: Mild degenerative changes. Reviewed, Interpreted and Dictated by Tom Maynard III, MD Transcribed by Fabian Doshi Authenticated by Tom Maynard III, MD on 03/10/2022 01:33:09 PM [facility]
== END ==
PROVIDERS: PCP Physician Assistant; Visit Provider Physician Assistant
DX: M54.50 Low back pain, unspecified (principal)
CPT/HCPCS: 72110; 72220; 87086

== ENCOUNTER → 2022-03-11 13:38 | Outpatient (CLI) | payer MEDICAID, SELFPAY ==
[2022-03-11 14:45] LABS: Basophils # 0.1 K/mm3 (0-0.2); Basophils % 0.8 % (0.1-2.0); Hemoglobin 13.1 g/dL (12.2-16.2); Lymphocytes # 1.1 K/mm3 (0.7-4.5); Lymphocytes % 9.7 % (10-50); Mean Corpuscular HGB Conc 33.6 g/dL (31.8-35.4); Mean Corpuscular Hemoglobin 33.6 pg (27.0-31.2); Mean Platelet Volume 9.8 fl (7.4-10.4); Monocytes # 0.4 K/mm3 (0.1-1.0); Monocytes % 3.9 % (1.7-9.3); Neutrophils # 9.7 K/mm3 (1.8-7.8); Neutrophils % 85.5 % (37.0-80.0); Platelet Count 205 K/mm3 (142-424); Red Cell Distribution Width 13.2 % (11.5-17.5); White Blood Count 11.4 K/mm3 (4.8-10.8)
[2022-03-11 14:55] LABS: Alanine Aminotransferase 62 U/L (12-78); Albumin Level 4.7 g/dl (3.5-5.0); Albumin/Globulin Ratio 1.7 (1.1-1.8); Alkaline Phosphatase 65 U/L (38-126); Anion Gap 10.5 mEq/L (5-15); Aspartate Amino Transferase 58 U/L (14-36); Bilirubin,Total 0.5 mg/dl (0.2-1.3); Blood Urea Nitrogen 13 mg/dl (7-17); Calcium 10.1 mg/dl (8.4-10.2); Carbon Dioxide 29 mmol/L (22.0-30.0); Chloride 103 mmol/L (98-107); Estimated Glomerular Filt Rate 104 ml/min (>60); GFR (African American) 126 ML/MIN (>60); Globulin 2.8 g/dL (1.3-3.2); Glucose 127 mg/dl (74-100); Potassium 4.5 mmoL/L (3.5-5.1); Sodium 138 mmol/L (136-145); Total Protein,Serum 7.5 g/dl (6.3-8.2)
[2022-03-11 14:56] LABS: MANUAL DIFFERENTIAL MANUAL DIFFERENTIAL (MANUAL DIFF)
[2022-03-11 16:16] LABS: Erythrocyte Sedimentation Rate 23 mm/hr (0-30)
[2022-03-11 17:48] LABS: Lymphocytes % 7 % (10-50); Macrocytosis 1+; Monocytes % 2 % (2-9); Neutrophils % 91 % (42-76); Platelet Estimate Normal; Total Cells Counted 100
== END ==
PROVIDERS: Visit Provider Physician Assistant
DX: M54.50 Low back pain, unspecified (principal)
CPT/HCPCS: 36415; 80053; 83036; 85007; 85025; 85651; 86140

== ENCOUNTER → 2022-09-19 13:01 | Outpatient (CLI) | payer MEDICAID, SELFPAY ==
--- NOTE | 2022-09-19 13:02 | MR_ITS ---
FINAL REPORT CLINICAL HISTORY: R Knee pain around patella, no injury FINDINGS: Multiplanar MR imaging of the right knee was performed without contrast. There is a tear involving the posterior horn of the medial meniscus. The lateral meniscus is intact. The anterior and posterior cruciate ligaments are intact. The medial collateral ligament and lateral ligamentous complex are intact. The patellar and quadriceps tendons are intact. No focal abnormality is identified of the articular cartilage. There is an osteochondral lesion at the posterior aspect of the medial femoral condyle measuring 5 mm. Small joint effusion is seen. The musculature is intact. No soft tissue mass or cyst is identified. IMPRESSION: Tear posterior horn medial meniscus. Osteochondral lesion of the medial femoral condyle. Reviewed, Interpreted and Dictated by Tom Maynard III, MD Transcribed by Lolly Latif Authenticated and [facility]
--- NOTE | 2022-09-19 13:53 | US_ITS ---
FINAL REPORT CLINICAL HISTORY: Lesion-- soft tissue back mass FINDINGS: Limited sonographic images of the right mid back were obtained. There is a 5.3 cm soft tissue mass in the region of interest, likely represents a lipoma. Reviewed, Interpreted and Dictated by Tom Maynard III, MD Transcribed by Lolly Latif Authenticated and [facility]
== END ==
PROVIDERS: PCP Physician Assistant; Visit Provider Nurse Practitioner Family
DX: M25.561 Pain in right knee (principal); L98.9 Disorder of the skin and subcutaneous tissue, unspecified
CPT/HCPCS: 73721; 76604

== ENCOUNTER → 2022-11-19 11:00 | Outpatient (CLI) | payer MEDICAID, SELFPAY ==
[2022-11-20 12:29] LABS: Adenovirus,PCR Not Detected (NotDetected); Bordetella Pertussis Not Detected (NotDetected); Chlamydophila Pneumoniae, PCR Not Detected (NotDetected); Coronavirus 19, PCR Not Detected (NotDetected); Coronavirus 229E Not Detected (NotDetected); Coronavirus NL63 Not Detected (NotDetected); Coronavirus OC43 Not Detected (NotDetected); Coronovirus HKU1,PCR Not Detected (NotDetected); Influenza A, PCR Not Detected (NotDetected); Influenza AH1, 2009 Not Detected (NotDetected); Influenza AH1, PCR Not Detected (NotDetected); Influenza AH3,PCR Not Detected (NotDetected); Influenza B, PCR Not Detected (NotDetected); Mycoplasma Pneumoniae, PCR Not Detected (NotDetected); Parainfluenza 1, PCR Not Detected (NotDetected); Parainfluenza 2, PCR Not Detected (NotDetected); Parainfluenza 3, PCR Not Detected (NotDetected); Parainfluenza 4, PCR Not Detected (NotDetected); Respiratory Syncytial Virus Not Detected (NotDetected); Rhinovirus/Enterovirus Not Detected (NotDetected)
[2022-11-20 15:58] LABS: Human Metapneumovirus Detected (NotDetected)
== END ==
PROVIDERS: PCP Nurse Practitioner Family; Visit Provider Nurse Practitioner Family
DX: N39.0 Urinary tract infection, site not specified (principal); J02.9 Acute pharyngitis, unspecified; R11.2 Nausea with vomiting, unspecified; R19.7 Diarrhea, unspecified; B97.81 Human metapneumovirus as the cause of diseases classified elsewhere
CPT/HCPCS: 87086; 87581; 87632; 87798; C9803; U0003; U0005

== ENCOUNTER → 2022-11-19 15:30 | Outpatient (CLI) | payer MEDICAID, SELFPAY | PROVIDERS: PCP Nurse Practitioner Family; Visit Provider Nurse Practitioner Family | DX: J20.8 Acute bronchitis due to other specified organisms (principal) ==

== ENCOUNTER → 2022-12-05 13:53 | Outpatient (CLI) | payer MEDICAID, SELFPAY ==
--- NOTE | 2022-12-05 13:57 | XR_ITS ---
FINAL REPORT CLINICAL HISTORY: RT knee pain. NO TRAUMA COMPARISON: January 19, 2019 FINDINGS: Three views of the right knee reveal no evidence of fracture or dislocation. The bony alignment is normal. There are mild degenerative changes. There is meniscal calcification. There is no evidence of joint effusion. No localized soft tissue abnormality is identified. IMPRESSION: Mild degenerative changes with no acute abnormality identified. Reviewed, Interpreted and Dictated by Tom Maynard III, MD Transcribed by Keesha Ortiz Authenticated and [facility]
== END ==
PROVIDERS: PCP Nurse Practitioner Family; Visit Provider Orthopaedic Surgery
DX: M25.561 Pain in right knee (principal)
CPT/HCPCS: 73562

== ENCOUNTER 2023-01-01 07:46 | Day surgery (SDC) | payer MEDICAID, SELFPAY ==
[2023-01-01 08:04] VITALS: BMI 25.0
[2023-01-01 08:14] VITALS: BP 121/75; PULSE 65; RESP 16; TEMP 36.1; O2SAT 98
[2023-01-01 08:23] LABS: Basophils # 0.1 K/mm3 (0-0.2); Basophils % 1.7 % (0.1-2.0); Eosinophils # 0.3 K/mm3 (0.0-0.4); Hematocrit 44.8 % (37.0-47.0); Hemoglobin 14.5 g/dL (12.2-16.2); Lymphocytes % 43.7 % (10-50); Mean Corpuscular HGB Conc 32.3 g/dL (31.8-35.4); Mean Corpuscular Hemoglobin 32.4 pg (27.0-31.2); Mean Corpuscular Volume 100.1 fl (81-99); Mean Platelet Volume 9.3 fl (7.4-10.4); Monocytes # 0.4 K/mm3 (0.1-1.0); Neutrophils # 1.7 K/mm3 (1.8-7.8); Neutrophils % 38.5 % (37.0-80.0); Platelet Count 216 K/mm3 (142-424); Red Blood Count 4.48 M/mm3 (4.20-5.40); Red Cell Distribution Width 13.4 % (11.5-17.5); White Blood Count 4.5 K/mm3 (4.8-10.8)
[2023-01-01 08:25] LABS: Chloride 111 mmol/L (98-107)
[2023-01-01 08:26] LABS: Potassium 4.6 mmoL/L (3.5-5.1); Sodium 145 mmol/L (136-145)
[2023-01-01 08:29] LABS: Anion Gap 14.6 mEq/L (5-15); Blood Urea Nitrogen 7 mg/dl (7-17); Calcium 9.4 mg/dl (8.4-10.2); Carbon Dioxide 24 mmol/L (22.0-30.0); Creatinine Clearance Estimated 121 mL/min (50-200); Estimated Glomerular Filt Rate 104 ml/min (>60); GFR (African American) 126 ML/MIN (>60); Glucose 90 mg/dl (74-100)
--- NOTE | 2023-01-01 10:39 | EXP.OP.NOTE ---
Date of procedure: 01/01/23 Pre-op Diagnosis:: Right flank/back lipoma (11 cm) Post-op Diagnosis:: Same Procedure performed:: Excision of 11 cm right flank/back lipoma Surgeon:: Rm Garcia MD Anesthesia: MAC and local Estimated blood loss (mL): 10 Operative findings:: Multifocal lobulated complex lipomatous lesion Operative note:: After informed consent was obtained the patient was taken to the operating room and placed in the supine position. She was transferred to the left lateral decubitus position and monitored anesthesia care ensued. Her right flank/back was prepped and draped in a sterile fashion. After infiltration local anesthetic an elliptical incision was made around the central portion of the mass. The deep subcutaneous tissue was dissected with a combination of scalpel and electrocautery. A complex multifocal lobulated lipomatous growth was excised from surrounding tissue. Dissection was taken to the margin of the musculature. The lipomatous lesion extended to the margin of the fascia; however, did not penetrate the fascia. The entire 11 cm lesion was excised and passed off for pathologic evaluation. Electrocautery was utilized to achieve hemostasis. Skin was reapproximated with interrupted 4-0 nylon in an interrupted/mattress fashion. Dressings were applied and the patient was transferred to recovery in stable condition. Condition: stable Disposition: PACU Specimens:: Right flank/back lipoma Complications:: No immediate
[2023-01-01 10:42] VITALS: BP 110/61; PULSE 63; RESP 16; TEMP 36.5; O2SAT 98
[2023-01-01 10:52] VITALS: BP 124/68; PULSE 68; RESP 16; O2SAT 100
--- NOTE | 2023-01-01 10:53 | EXP.ANES.CKL ---
[facility] Disclaimer: The information contained in this section may have been updated after the patient was seen, as this information can be updated by other users. Medical History Alcohol abuse Allergic rhinitis Anxiety Back Pain Bipolar disorder Cervical radiculopathy Constipation GERD (gastroesophageal reflux disease) Migraine headache Neck Pain Postmenopausal HRT (hormone replacement therapy) Right hip pain RLS (restless legs syndrome) Tobacco dependence Surgical History (Updated 01/01/23 @ 08:07 by Tessy Richardson RN) H/O shoulder surgery Family History (Updated 01/01/23 @ 08:10 by Tessy Richardson RN) Other H/O heart artery stent Social History (Updated 01/01/23 @ 08:11 by Tessy Richardson RN) Smoking Status: Current every day smoker tobacco type: cigarettes packs per day: 1 alcohol intake: former substance use type: denies use current occupational status: employed Travel in the last 8 weeks: None housing: house current occupational exposures/hazards: No caffeine: No [facility] Anesthesia Checklist Patient Identification Patient Identification: Arm Band and Family Structural Data Admitted From: Home Planned Operative Procedure/s: Excision left flank lesion Consent for Planned Operative Procedure(s) Verified: Yes Verified Documents: Surgical Consent NPO Status Verified Time NPO: 00:00 Additional verifications Patient : No Anesthesia Reactions: No Hx Blood Transfusions: No Blood Transfusion Reaction: No Cephalosporin Allergy: No Airway Assessment C-Spine Mobility Assessed: Yes TMJ Mobility Assessed: Yes Dentition: Good Dentition Neurological Assessment Level of Consciousness: Awake, Alert, Appropriate and Follows Commands Hx Seizures: No Numbness or tingling in extremities: No Anesthesia Plan Anesthesia Risk discussed: Yes ASA Class: II Anesthesia Type: MAC
[2023-01-01 11:02] VITALS: BP 121/68; PULSE 55; RESP 16; O2SAT 100
--- NOTE | 2023-01-01 11:10 | P.PN_ITS ---
[facility] Disclaimer: The information contained in this section may have been updated after the patient was seen, as this information can be updated by other users. Medical History Alcohol abuse Allergic rhinitis Anxiety Back Pain Bipolar disorder Cervical radiculopathy Constipation GERD (gastroesophageal reflux disease) Migraine headache Neck Pain Postmenopausal HRT (hormone replacement therapy) Right hip pain RLS (restless legs syndrome) Tobacco dependence Surgical History (Updated 01/01/23 @ 08:07 by Tessy Richardson RN) H/O shoulder surgery Family History (Updated 01/01/23 @ 08:10 by Tessy Richardson RN) Other H/O heart artery stent Social History (Updated 01/01/23 @ 08:11 by Tessy Richardson RN) Smoking Status: Current every day smoker tobacco type: cigarettes packs per day: 1 alcohol intake: former substance use type: denies use current occupational status: employed Travel in the last 8 weeks: None housing: house current occupational exposures/hazards: No caffeine: No [facility] Anesthesia Checklist Patient Identification Patient Identification: Arm Band and Family Structural Data Admitted From: Home Planned Operative Procedure/s: Left Flank Lesion Consent for Planned Operative Procedure(s) Verified: Yes Verified Documents: Surgical Consent NPO Status Verified Time NPO: 00:00 Additional verifications Patient : No Anesthesia Reactions: No Hx Blood Transfusions: No Blood Transfusion Reaction: No Cephalosporin Allergy: No Previous Colonoscopy: No Airway Assessment C-Spine Mobility Assessed: Yes TMJ Mobility Assessed: Yes Dentition: Good Dentition Neurological Assessment Level of Consciousness: Awake, Alert, Appropriate and Follows Commands Hx Seizures: No Numbness or tingling in extremities: No Anesthesia Plan Anesthesia Risk discussed: Yes ASA Class: II Anesthesia Type: MAC
[2023-01-01 11:25] VITALS: BP 130/72; PULSE 59; RESP 17; O2SAT 100
== END 2023-01-01 11:25 | disposition home or self-care (01) ==
PROVIDERS: PCP Nurse Practitioner Family; Visit Provider Surgery
PROC: (CPT 11406; principal; 2023-01-01 09:30)
DX: D17.1 Benign lipomatous neoplasm of skin and subcutaneous tissue of trunk (principal); F17.210 Nicotine dependence, cigarettes, uncomplicated
CPT/HCPCS: 11406; 80048; 85025; J2405

== ENCOUNTER 2023-02-03 16:55 | Outpatient (RCR) | payer MEDICAID, SELFPAY | END 2023-02-03 17:45 | disposition home or self-care (01) | LOC: PT 16:55 | PROVIDERS: Visit Provider Emergency Medicine | DX: S93.401A Sprain of unspecified ligament of right ankle, initial encounter (principal) | CPT/HCPCS: 97760 ==

== ENCOUNTER → 2023-02-10 10:14 | Outpatient (CLI) | payer MEDICAID, SELFPAY ==
--- NOTE | 2023-02-10 10:16 | XR_ITS ---
FINAL REPORT CLINICAL HISTORY: foot injury FINDINGS: Right foot Three views were obtained. There is no acute fracture or dislocation. There are mild hypertrophic changes of the 1st metatarsophalangeal joint. No soft tissue abnormality is identified. IMPRESSION: No acute process. Reviewed, Interpreted and Dictated by Parth Escalona MD Transcribed by Lolly Latif Authenticated and [facility]
== END ==
PROVIDERS: PCP Nurse Practitioner Family; Visit Provider Orthopaedic Surgery
DX: M79.671 Pain in right foot (principal)
CPT/HCPCS: 73630

== ENCOUNTER → 2023-11-18 08:56 | Outpatient (CLI) | payer MEDICAID, SELFPAY ==
[2023-11-18 19:25] LABS: Adenovirus,PCR Not Detected (NotDetected); Coronavirus 19, PCR Not Detected (NotDetected); Coronavirus 229E Not Detected (NotDetected); Coronavirus NL63 Not Detected (NotDetected); Coronavirus OC43 Not Detected (NotDetected); Coronovirus HKU1,PCR Not Detected (NotDetected); Human Metapneumovirus Not Detected (NotDetected); Influenza A, PCR Not Detected (NotDetected); Influenza AH1, 2009 Not Detected (NotDetected); Influenza AH1, PCR Not Detected (NotDetected); Influenza AH3,PCR Not Detected (NotDetected); Influenza B, PCR Not Detected (NotDetected); Parainfluenza 1, PCR Not Detected (NotDetected); Parainfluenza 2, PCR Not Detected (NotDetected); Parainfluenza 3, PCR Not Detected (NotDetected); Parainfluenza 4, PCR Not Detected (NotDetected); Respiratory Syncytial Virus Not Detected (NotDetected); Rhinovirus/Enterovirus Not Detected (NotDetected)
--- OUTSIDE RECORDS SUMMARY | 2023-11-25 08:57 | XMS_ITS | Clinical Summary ---
Author Name Unknown Address [address] [place] [address] Phone Organization [facility] Address [address] [place] [address] Phone Care Team Providers Care Upholstery Covers Inspector Name Role Phone Unavailable Unavailable Conditions or Problems No information available. Medications No information available. Medications Administered No information available. Allergies, Adverse Reactions, Alerts No information available. Results No information available. Plan of Care No information available. Procedures No information available. Vital Signs No information available. Immunizations No information available. Advance Directives No information available.
== END ==
LOC: LAB.DROPOF 11-25 08:56
PROVIDERS: PCP Family Medicine; Visit Provider Family Medicine
DX: R06.02 Shortness of breath (principal); J06.9 Acute upper respiratory infection, unspecified; R51.9 Headache, unspecified; J02.9 Acute pharyngitis, unspecified
CPT/HCPCS: 87632; 87635

== ENCOUNTER 2024-01-11 19:33 | Outpatient (CLI) | payer MEDICAID, SELFPAY ==
[2024-01-11 18:57] LABS: Basophils % 0.5 % (0.1-2.0); Eosinophils # 0.1 K/mm3 (0.0-0.4); Hematocrit 42.5 % (37.0-47.0); Hemoglobin 14.7 g/dL (12.2-16.2); Lymphocytes # 2.1 K/mm3 (0.7-4.5); Lymphocytes % 37.2 % (10-50); Mean Corpuscular HGB Conc 34.5 g/dL (31.8-35.4); Mean Corpuscular Hemoglobin 35.1 pg (27.0-31.2); Mean Corpuscular Volume 101.7 fl (81-99); Mean Platelet Volume 10.5 fl (7.4-10.4); Monocytes # 0.4 K/mm3 (0.1-1.0); Monocytes % 7.9 % (1.7-9.3); Neutrophils # 2.9 K/mm3 (1.8-7.8); Neutrophils % 52.4 % (37.0-80.0); Platelet Count 200 K/mm3 (142-424); Red Blood Count 4.18 M/mm3 (4.20-5.40); Red Cell Distribution Width 12.9 % (11.5-17.5); White Blood Count 5.6 K/mm3 (4.8-10.8)
[2024-01-11 19:10] LABS: Alanine Aminotransferase 85 U/L (12-78); Albumin Level 5.1 g/dl (3.5-5.0); Albumin/Globulin Ratio 1.7 (1.1-1.8); Alkaline Phosphatase 70 U/L (38-126); Anion Gap 19.2 mEq/L (5-15); Aspartate Amino Transferase 140 U/L (14-36); Bilirubin,Total 0.7 mg/dl (0.2-1.3); Blood Urea Nitrogen 10 mg/dl (7-17); Calcium 10.3 mg/dl (8.4-10.2); Carbon Dioxide 24 mmol/L (22.0-30.0); Chloride 103 mmol/L (98-107); Chol/HDL Ratio 3.2 (1-3.5); Cholesterol 264 mg/dl (140-200); Estimated Glomerular Filt Rate 128 ml/min (>60); GFR (African American) 154 ML/MIN (>60); Glucose 81 mg/dl (74-100); HDL Cholesterol 82 mg/dl (40-60); Potassium 4.2 mmoL/L (3.5-5.1); Sodium 142 mmol/L (136-145); Total Protein,Serum 8.1 g/dl (6.3-8.2); Triglycerides 134 mg/dl (30-150); VLDL Cholesterol 27 mg/dL (0-40)
[2024-01-11 19:24] LABS: Direct LDL Cholesterol 133.32 mg/dL (100-129)
[2024-01-11 19:43] LABS: Thyroid Stimulating Hormone 1.63 uIU/mL (0.465-4.68)
[2024-01-11 19:57] LABS: 25-OH Vitamin D, Total 77.8 ng/mL (30-100)
[2024-01-11 20:03] LABS: Vitamin B12 692 pg/mL (239-931)
== END 2024-01-11 23:59 ==
LOC: LAB.DROPOF 19:33
PROVIDERS: PCP Family Medicine; Visit Provider Family Medicine
DX: R53.83 Other fatigue (principal); I20.89 Other forms of angina pectoris; J30.9 Allergic rhinitis, unspecified; M54.50 Low back pain, unspecified; M51.36 Other intervertebral disc degeneration, lumbar region; R29.898 Other symptoms and signs involving the musculoskeletal system
CPT/HCPCS: 80053; 80061; 82306; 82607; 84443; 85025

== ENCOUNTER 2024-01-29 12:26 | Outpatient (CLI) | payer MEDICAID, SELFPAY ==
--- NOTE | 2024-01-29 | CA_ITS ---
APPROVED REPORT Exam: Exercise Treadmill Technologist: Dayna Garcia, Ht: 5 ft 7 in Wt: 167 lbs BSA: 1.87 m2 HR: 64 bpm BP: 126/82 mmHg Rhythm: NSR Indications: Fatigue, Elevated BP Medical History Medical History: HTN, Smoking Medications: Omeprazole,,,,, Flonase,,,,, Buspirone,,,,, MeLOXICAM,,,,, Methocarbamol,,,,, Lisinopril HCTZ,,,,, Diclofenac Sodium,,,,, Allergies: No known drug allergies Cardiac Risk Factors: HTN, FHX of CAD, Smoking Stress Test Details Test: Exercise stress testing was performed using a Jc protocol. HR Resting HR: 62 bpm Max Heart Rate (APMHR): 164 bpm Max HR Achieved: 141 bpm Target HR (85% APMHR): 139 bpm % of APMHR: 86 Recovery HR: 83 bpm HR response to stress: Normal HR response to stress BP Resting BP: 122.0/80 mmHg Max BP: 179/87 mmHg Recovery BP: 139.0/82.0 mmHg BP response to stress: Normal blood pressure response to stress. ECG Resting ECG: Normal sinus rhythm, low voltage in limb leads Stress EC.[address] depression Arrhythmia: None Recovery ECG: Return to baseline within 3 minutes of recovery Clinical Exercise duration: 10:17 min Highest Stage Achieved: Stage 4: 4.2 mph at 16% grade. Exercise capacity: 10.9 METs Overall Exercise Capacity for Age: Average Stress ECG Conclusion The patient was able to exercise for a total of 10 minutes, 17 seconds. She achieved a total of 10.9 METS. She has average exercise capacity compared to age and sex matched peers. She has normal HR and BP response to exercise. MAX HR: 141 % OF PM: 86% MAX BP: 179/87 METS: 10.9 TEST STOPPED DUE TO: SOA, LEG FATIGUE PT HAD MILD CHEST DISCOMFORT NORMAL ST RESPONSE TO EXERCISE CONCLUSION: NORMAL GXT MYOVIEW IMAGES REPORTED SEPARATELY Test Summary REST . . . . . . . Sitting REST . . . . . . . Standing REST 03:37 0.0 0.0 62 . 122/ 80 . . Stage 1 01:00 10.0 1.7 90 . . . . Stage 1 02:00 10.0 1.7 91 . . . . Stage 1 03:00 10.0 1.7 94 . 150/ 80 . . Stage 2 01:00 12.0 2.5 106 . . . . Stage 2 02:00 12.0 2.5 109 . . . . Stage 2 03:00 12.0 2.5 114 . 162/ 72 . . Stage 3 01:00 14.0 3.4 123 . . . . Stage 3 02:00 14.0 3.4 129 . . . . Stage 3 . . . . . . . Stage held Stage 3 03:00 14.0 3.4 133 . . . . Stage 3 . . . . . . . Protocol changed to Manual Treadmill Stage 3 04:00 14.0 3.8 138 . . . . Stage 3 . . . . . . . Stage resumed Stage 3 04:17 14.0 3.8 140 . . . Stop exercise at 10:17 RECOVERY 01:00 0.0 0.0 121 . . . . RECOVERY 02:00 0.0 0.0 107 . 179/ 87 . . RECOVERY 03:00 0.0 0.0 105 . 172/ 94 . . RECOVERY 04:00 0.0 0.0 88 . 154/ 84 . . RECOVERY 05:00 0.0 0.0 87 . 139/ 82 . . RECOVERY 05:20 0.0 0.0 87 . 139/ 82 . . Electronically signed by : Carolina Hall MD 02/01/2024 22:11:27
--- NOTE | 2024-01-29 12:27 | NM_ITS ---
APPROVED REPORT Exam: Nuclear Stress Test Indication: Fatigue, HTN, Family history Patient Location: Outpatient Stress Tech: Dayna GONSALEZ Tech:Krysta BronsonNAN RT(R)(N) Ht: 5 ft 7 in Wt: 165 lbs Bra Size: 36D HR: 62 bpm BP: 122/80 mmHg BSA: 1.86 m2 TID: 1.19 BMI: 25.8 History: Fatigue, HTN, Family history Procedure: Patient exercised on Jc protocol 10:17 minutes and sec, resting heart rate 62 bpm, resting blood pressure 122/80 mmHg, with exercise maximum heart rate achived was 141 bpm which is 86 % of the maximum predicted heart rate and blood pressure was 179/87 mmHg. Test was stopped due to SOB. Patient denied any complaint of chest pain. Patient has exercise capacity, achieved 10.9 METs of workload on treadmill, the blood pressure response to exercise was . Cardiac Stress and Resting SPECT Images: Cardiac Stress and Resting SPECT images were obtained using technetium 99m Myoview 32.0 mCi stress and 10.29 mCi at rest. Resting and stress imaging in supine and prone positions demonstrate no evidence of fixed or reversible perfusion defects. Gated imaging demonstrates low-normal global and regional LV systolic function. LVEF is calculated at 51%. Conclusion: No evidence of fixed or reversible perfusion defects. Gated imaging demonstrates low-normal global and regional LV systolic function. LVEF is calculated at 51%. Electronically signed by : Carolina Hall MD 02/01/2024 22:13:33
--- NOTE | 2024-01-29 14:12 | CA_ITS ---
APPROVED REPORT EXAM: Comprehensive 2D, Doppler, and color-flow Echocardiogram Radiagraph Operator: Mei Aden RDCS Ht: 5 ft 7 in Wt: 167lbs BSA: 1.87 BP: 156/86 mmHg Indications: CP,FAM HIS M-Mode Dimensions RVDd 2.25 cm (0.9-2.6) LA Diam 2.89 cm (1.9-4.0) LVDd 4.65 cm (3.5-5.7) LVDs 3.18 cm (3.5-5.7) IVSd 0.78 cm (0.6-1.1) PWd 0.75 cm (0.6-1.1) EF (Teich) 59.60% FS 31.60% EDV (Teich) 99.80 mL ESV (Teich) 40.30 mL LV Diastology E Decel Time 183 (160-240 msec) E/A Ratio 1.3 Mitral Valve MV E Max Herbert. 71.0 (40-130 cm/s) MV A Velocity 54.0 (40-130 cm/s) E/A Ratio 1.33 MV PHT 54.0 ms Tricuspid Valve TR P. Velocity 209.00 cm/s RAP Estimate 10.00 mmHg RVSP 27.40 mmHg Left Ventricle The left ventricle is normal size. The left ventricular systolic function is normal. The left ventricular ejection fraction is within the normal range. There is normal left ventricular wall thickness. There is normal LV segmental wall motion. The left ventricular diastolic function is normal. LVEF is 55%. Right Ventricle The right ventricle is normal size. The right ventricular systolic function is normal. Atria The left atrium size is normal. The right atrium size is normal. There is no Doppler evidence of interatrial shunt. Aortic Valve The aortic valve opens well. There is no aortic valvular stenosis. No aortic regurgitation is present. Mitral Valve The mitral valve is normal in structure. No evidence of mitral valve stenosis. There is no mitral valve regurgitation noted. Tricuspid Valve The tricuspid valve leaflets are thin and pliable. Trace tricuspid regurgitation. There is insufficient TR jet to estimate RVSP. Pulmonic Valve The pulmonary valve is normal in structure. Trace pulmonic regurgitation. Great Vessels The aortic root is normal in size. The ascending aorta is normal in size. IVC is normal in size and collapses >50% with inspiration. Pericardium There is no pericardial effusion. Other Information Study Quality: Fair Conclusion Normal biventricular systolic function. No significant valvular stenosis or regurgitation. Electronically signed by : Carolina Hall MD 02/01/2024 23:47:26
[2024-01-29] MEDS: ISOTOPE MYOVIEW (PER STUDY) 1 DOSE IV (15:30)
[2024-01-29] MEDS: SODIUM CHLORIDE 0.9% 10ML SYR (RAD ONLY) 10 ML IV ×2 (15:30)
== END 2024-01-29 23:59 ==
LOC: RAD 12:27
PROVIDERS: PCP Family Medicine; Visit Provider Family Medicine
DX: I20.89 Other forms of angina pectoris (principal); R53.83 Other fatigue; Z82.49 Family history of ischemic heart disease and other diseases of the circulatory system
CPT/HCPCS: 78452; 93017; 93018; 93306; A9502

== ENCOUNTER 2024-02-09 16:14 | Outpatient (CLI) | payer MEDICAID, SELFPAY ==
--- NOTE | 2024-02-09 16:14 | MR_ITS ---
PROCEDURE INFORMATION: Exam: MR Pelvis Without Contrast, Sacrum Exam date and time: 02/09/2024 4:15 PM Age: 58 years old Clinical indication: Pelvic pain; Additional info: Ddd, back pain, leg weakness TECHNIQUE: Imaging protocol: Magnetic resonance imaging of the pelvis without contrast. Exam focused on the sacrum. COMPARISON: XR SACRUM COCCYX MIN 2V 03/10/2022 12:10 PM FINDINGS: Bones/joints: No fracture or bone marrow edema. Slight curvilinear shape of the distal sacrum and coccyx is unchanged from 03/10/2022. Soft tissues: No masses or fluid collections. IMPRESSION: No acute findings in the sacrum and coccyx.
--- NOTE | 2024-02-09 16:14 | MR_ITS ---
PROCEDURE INFORMATION: Exam: MR Lumbar Spine Without Contrast Exam date and time: 02/09/2024 4:15 PM Age: 58 years old Clinical indication: Low back pain TECHNIQUE: Imaging protocol: Magnetic resonance imaging of the lumbar spine without contrast. COMPARISON: CR XR LUMBAR SPINE MIN 4V 03/10/2022 12:10 PM FINDINGS: Bones/joints: No fracture or bone lesions. Normal alignment. Spinal cord: Visualized cord, conus medullaris and cauda equina are unremarkable without compression. Conus medullaris terminates at T12-L1. L1-L2: Concentric disc bulge. No severe spinal canal stenosis. No significant neural foraminal narrowing. L2-L3: Concentric disc bulge and mild disc space narrowing. No severe spinal canal stenosis. No significant neural foraminal narrowing. L3-L4: Concentric disc bulge and disc space narrowing.. No severe spinal canal stenosis. No significant neural foraminal narrowing. L4-L5: Right central disc protrusion causes mild spinal canal stenosis and may contact the right L5 nerve root in the lateral recess. No significant neural foraminal narrowing. L5-S1: No significant disc bulge or herniation. No severe spinal canal stenosis. No significant neural foraminal narrowing. Moderate disc space narrowing. Soft tissues: No paraspinal or retroperitoneal masses. IMPRESSION: 1. Right central disc protrusion at L4-L5 may contact the right L5 nerve root. 2. Multilevel degenerative disc disease in the lumbar spine.
== END 2024-02-09 23:59 ==
LOC: RAD 16:14
PROVIDERS: PCP Family Medicine; Visit Provider Family Medicine
DX: M54.50 Low back pain, unspecified (principal); R29.898 Other symptoms and signs involving the musculoskeletal system
CPT/HCPCS: 72148; 72195; 76376

== ENCOUNTER 2024-08-10 08:59 | Outpatient (CLI) | payer MEDICAID, SELFPAY ==
[2024-08-10 18:23] LABS: Influenza A, PCR Not Detected (NotDetected); Influenza B, PCR Not Detected (NotDetected)
[2024-08-12 13:36] LABS: Coronavirus 19, PCR Detected (NotDetected)
== END 2024-08-10 23:59 | disposition home or self-care (01) ==
LOC: LAB.DROPOF 08-11 09:00
PROVIDERS: PCP Family Medicine; Visit Provider Family Medicine
DX: R53.83 Other fatigue (principal)
CPT/HCPCS: 87636

== ENCOUNTER 2024-10-28 11:52 | Outpatient (CLI) | payer OTHER, SELFPAY ==
--- NOTE | 2024-10-28 11:55 | XR_ITS ---
FINAL REPORT CLINICAL HISTORY: neck pain FINDINGS: CERVICAL SPINE SERIES Three views demonstrate no acute fracture. There mild degenerative changes. Mild retrolisthesis is seen of C3 on C4. Right carotid artery calcification is noted.. The vertebral body demonstrates normal height.. There is no malalignment. IMPRESSION: No acute process. Reviewed, Interpreted and Dictated by Tom Maynard III, MD Transcribed by Swetha Allen Authenticated and [facility]
[2024-10-28 18:18] LABS: Albumin Level 4.2 g/dl (3.5-5.0); Chloride 103 mmol/L (98-107)
[2024-10-28 18:19] LABS: Potassium 4.3 mmoL/L (3.5-5.1); Sodium 138 mmol/L (136-145)
[2024-10-28 18:21] LABS: Alanine Aminotransferase 57 U/L (12-78); Albumin/Globulin Ratio 1.5 (1.1-1.8); Anion Gap 11.3 mEq/L (5-15); Aspartate Amino Transferase 72 U/L (14-36); Bilirubin,Direct 0.5 mg/dl (0.0-0.4); Bilirubin,Total 0.5 mg/dl (0.2-1.3); Bilirubin,Unconjugated 0.1 mg/dL (0.0-1.1); Blood Urea Nitrogen 15 mg/dl (7-17); Carbon Dioxide 28 mmol/L (22.0-30.0); Estimated Glomerular Filt Rate 103 ml/min (>60); GFR (African American) 125 ML/MIN (>60); Globulin 2.8 g/dL (1.3-3.2)
[2024-10-28 18:22] LABS: Alkaline Phosphatase 70 U/L (38-126); Calcium 10.3 mg/dl (8.4-10.2); Glucose 129 mg/dl (74-100)
[2024-11-01 14:13] LABS: HBsAg Screen Negative (Negative); HCV Ab Reactive (Non Reactive); Hep A Ab, IGM Negative (Negative); Hep B Core Ab, IgM Negative (Negative)
== END 2024-10-28 23:59 | disposition home or self-care (01) ==
LOC: RAD 11:53
PROVIDERS: PCP Family Medicine; Visit Provider Family Medicine
DX: M54.12 Radiculopathy, cervical region (principal); M54.2 Cervicalgia; R74.8 Abnormal levels of other serum enzymes; B19.20 Unspecified viral hepatitis C without hepatic coma; F10.10 Alcohol abuse, uncomplicated
CPT/HCPCS: 72040; 80053; 80074; 80076

== ENCOUNTER 2024-11-15 08:30 | Outpatient (CLI) | payer OTHER, SELFPAY ==
--- NOTE | 2024-11-15 08:30 | MR_ITS ---
FINAL REPORT TECHNIQUE: Multiplanar MR without and with contrast administration. CLINICAL HISTORY: neck pain FINDINGS: MRI CERVICAL SPINE, WITHOUT AND WITH CONTRAST No fracture is present. Alignment is normal. The cervical spinal cord shows normal signal and contour. No abnormal enhancement is present. No mass or abnormal contrast-enhancement. C2-C3: Minimal annular disc bulge. C3-C4: Moderate annular disc bulge. Mild facet overgrowth. Moderate bilateral neuroforaminal narrowing. C4-C5: Mild annular disc bulge and facet arthropathy. Borderline bilateral neuroforaminal narrowing. C5-C6: Mild facet overgrowth. Mild bilateral neuroforaminal narrowing. C6-C7: Tiny left paracentral disc protrusion. Mild facet overgrowth C7-T1: No significant disc disease is present. There is no canal stenosis. IMPRESSION: No mass or abnormal contrast-enhancement. Mild degenerative changes, most pronounced at C3-4. Reviewed, Interpreted and Dictated by Brandon Leiva MD Transcribed by Lolly Latif Authenticated and [facility]
[2024-11-15] MEDS: SODIUM CHLORIDE 0.9% 10ML SYR (RAD ONLY) 10 ML IV (09:27)
[2024-11-15] MEDS: GADOTERIDOL INJ 20ML SYRINGE 15 ML IV (09:27)
== END 2024-11-15 23:59 | disposition home or self-care (01) ==
LOC: RAD 08:30
PROVIDERS: PCP Family Medicine; Visit Provider Family Medicine
DX: M54.2 Cervicalgia (principal); M54.12 Radiculopathy, cervical region
CPT/HCPCS: 72156; A9576

== ENCOUNTER 2025-02-15 13:58 | Outpatient (CLI) | payer MEDICAID, SELFPAY ==
[2025-02-15 18:49] LABS: Basophils # 0.1 K/mm3 (0-0.2); Eosinophils # 0.2 K/mm3 (0.0-0.4); Eosinophils % 2.1 % (0.1-12.0); Hematocrit 38.6 % (37.0-47.0); Hemoglobin 13.5 g/dL (12.2-16.2); Lymphocytes # 2.2 K/mm3 (0.7-4.5); Lymphocytes % 31.3 % (10-50); Mean Corpuscular Hemoglobin 34.7 pg (27.0-31.2); Mean Corpuscular Volume 99.2 fl (81-99); Mean Platelet Volume 11.3 fl (7.4-10.4); Monocytes # 0.7 K/mm3 (0.1-1.0); Monocytes % 10.3 % (1.7-9.3); Neutrophils # 3.9 K/mm3 (1.8-7.8); Neutrophils % 55.2 % (37.0-80.0); Platelet Count 241 K/mm3 (142-424); Red Blood Count 3.89 M/mm3 (4.20-5.40); Red Cell Distribution Width 11.6 % (11.5-17.5)
[2025-02-15 20:31] LABS: Alanine Aminotransferase 78 U/L (12-78); Albumin Level 5.1 g/dl (3.5-5.0); Albumin/Globulin Ratio 1.7 (1.1-1.8); Alkaline Phosphatase 57 U/L (38-126); Anion Gap 20.6 mEq/L (5-15); Aspartate Amino Transferase 115 U/L (14-36); Bilirubin,Total 0.6 mg/dl (0.2-1.3); Blood Urea Nitrogen 14 mg/dl (7-17); Calcium 10.4 mg/dl (8.4-10.2); Carbon Dioxide 23 mmol/L (22.0-30.0); Chloride 96 mmol/L (98-107); Cholesterol 234 mg/dl (140-200); Estimated Glomerular Filt Rate 46 ml/min (>60); GFR (African American) 56 ML/MIN (>60); Glucose 98 mg/dl (74-100); HDL Cholesterol 59 mg/dl (40-60); Potassium 4.6 mmoL/L (3.5-5.1); Sodium 135 mmol/L (136-145); Total Protein,Serum 8.1 g/dl (6.3-8.2); Triglycerides 259 mg/dl (30-150); VLDL Cholesterol 52 mg/dL (0-40)
[2025-02-15 20:47] LABS: 25-OH Vitamin D, Total 54.9 ng/mL (30-100); Direct LDL Cholesterol 111.71 mg/dL (100-129)
[2025-02-15 21:04] LABS: Thyroid Stimulating Hormone 3.81 uIU/mL (0.465-4.68)
== END 2025-02-15 23:59 | disposition home or self-care (01) ==
LOC: LAB.DROPOF 02-16 12:40
PROVIDERS: PCP Family Medicine; Visit Provider Family Medicine
DX: R53.83 Other fatigue (principal); F41.9 Anxiety disorder, unspecified; Z13.1 Encounter for screening for diabetes mellitus; E66.3 Overweight
CPT/HCPCS: 80053; 80061; 82306; 83036; 84443; 85025